=== PATIENT | female | born 1955 | race Caucasian/White ===

== ENCOUNTER 2020-02-09 15:40 | Outpatient (CLI) | payer SELFPAY ==
--- NOTE | 2020-02-13 13:52 | ONC FU_ITS ---
Dr. Lyons Patient Follow-Up Note Patient: Dasyi Zee Unit #: [id number]: 1955 Dicatated By: Daniel Lyons M.D.Date of Visit:Feb 09, 2020 Onc Med Follow-up/Prog Note Chief Complaint: Recurrent thrombosis. History of Present Illness: This is a 65 year old woman with recurrent episodes of lower extremity superficial thrombophlebitis and chronic venous stasis of the left leg. I had seen her initially in May 2006. She had been having recurrent episodes of superficial phlebitis, though she also reported a prior history of deep vein thrombosis involving both legs. 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 The phlebitis had been unresponsive to conservative measures, and I did had opted to keep her on chronic anticoagulation with warfarin. She reported having had deep vein thrombosis in both legs in the past, but it was at least 30 years ago. At that time she was treated with warfarin for about a year. She also has degenerative arthritis and fibromyalgia, and she has anxiety/depression. She is a nonsmoker. She is seen for a followup visit. She has been on disability as of last February. She says she is tired, but she is able to do light work. 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 She has good appetite. She has no fever, night sweats, or hot flashes. She has some allergy related sinus symptoms. She is needing to see a dentist for a bad tooth. She has no shortness of breath, cough, or chest pain. She has occasional acid reflux symptoms. She has no other GI or complaints. She has significant arthritis in her hands and feet, and she has ongoing problems with the lower extremity venous stasis. She has chronic anxiety. It is managed adequately with citalopram. Medications: Magnesium 1 Tablet Oral b.i.d., Multivitamins 1 Tablet Oral daily, Super B Complex 1 Tablet Oral daily, Vitamin C 1 Capsule Oral daily, Warfarin Sodium 7.5 Tablet Oral Allergies: NKA Review of Systems: Constitutional - She is generally feeling good. She takes care of her and their farm. Her appetite is good and her weight is up 16 pounds from last years visit. No fever, night sweats, or hot flashes. ECOG score is 1, ENMT - She has sinus congestion/drainage. No mouth sores. No sore throat or difficulty swallowing, Hematologic/Lymphatic - No abnormal bruising or bleeding, Respiratory - No shortness of breath. No cough. No pleuritic pain or hemoptysis, Cardiovascular - No angina pain. No palpitations, Gastrointestinal - No nausea or vomiting. She has occasional heartburn. No diarrhea or constipation. No blood in the stool or black stools, Genitourinary (F) - No dysuria or hematuria. No urinary frequency. No urgency or incontinence, Musculoskeletal - She has significant venous stasis pain in her legs. She also has joint pain in her hands and feet, Integumentary - No other skin complications, Neurologic - No headache or dizziness. No numbness or tingling. No other focal neurologic symptoms, Psychiatric - Her anxiety is adequately managed with citalopram. No depression. She is sleeping better with trazodone. Vital Signs: Her weight is 227 pounds. Blood pressure 146/83, pulse 73, respirations 16, temp 98.6 degrees, oxygen saturation 98%. Physical Examination: Constitutional - She looks pretty good generally, Eyes - Sclerae nonicteric. Conjunctivae clear, ENMT - She has a bad upper left molar. There are no other lesions noted in the oral cavity, Hematologic/Lymphatic - No cervical, clavicular, or axillary adenopathy, Respiratory - Lungs are clear with good air movement bilaterally, Cardiovascular - Heart rhythm is regular. There is no murmur, gallop, or rub noted, Abdomen - Mildly distended. Liver and spleen are not enlarged. There is no abdominal mass or ascites noted and there is no inguinal adenopathy, Extremities - There are venous stasis changes bilaterally, left much worse than right. There are no skin ulcerations. There is mild edema, Neurologic - No focal neurologic deficits noted. Impression: 1. Patiet with recurrent lower extremity venous thrombosis. 2. She has chronic venous stasis of the left leg which had gradually worsened despite anticoagulation with warfarin. Her other medical illnesses include: 3. She has fairly severe degenerative arthritis with poor mobility. 4. She has fibromyalgia. 5. She has chronic anxiety/depression and chronic insomnia. She has remained on chronic anticoagulation with warfarin, which she tolerates well. She has ongoing problems with the venous stasis, but she has had no evidence for any new thromboembolism. She has limited activity due to her degenerative arthritis and fibromyalgia. Her overall clinical status, though, appears stable. Plan: She continues anticoagulation with warfarin. She will be given a prescription for Augmentin for the dental infection, and she will be seeing a dentist as soon as she is able. I will just see her again in 1 year, or sooner as needed. Signed By: Daniel Lyons M.D. <<Signature on File>>
== END 2020-02-09 15:41 | disposition home or self-care (01) ==
PROVIDERS: PCP Family Medicine; Visit Provider Internal Medicine Medical Oncology
DX: Z09 Encounter for follow-up examination after completed treatment for conditions other than malignant neoplasm (principal); Z86.718 Personal history of other venous thrombosis and embolism; Z79.01 Long term (current) use of anticoagulants; K04.7 Periapical abscess without sinus; M19.90 Unspecified osteoarthritis, unspecified site; M79.7 Fibromyalgia; F41.8 Other specified anxiety disorders; F51.04 Psychophysiologic insomnia
CPT/HCPCS: G0463

== ENCOUNTER 2021-03-28 13:19 | Outpatient (CLI) | payer MEDICARE, SELFPAY ==
--- NOTE | 2021-04-01 17:02 | ONC FU_ITS ---
Dr. Lyons Patient Follow-Up Note Patient: Daysi Zee Unit #: [id number]: 1955 Dicatated By: Daniel Lyons M.D.Date of Visit:Mar 28, 2021 Onc Med Follow-up/Prog Note Chief Complaint: Recurrent thrombosis. History of Present Illness: This is a 66 year old woman with recurrent episodes of lower extremity superficial thrombophlebitis and chronic venous stasis of the left leg. I had seen her initially in May 2006. She had been having recurrent episodes of superficial phlebitis, though she also reported a prior history of deep vein thrombosis involving both legs. 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 The phlebitis had been unresponsive to conservative measures, and I did had opted to keep her on chronic anticoagulation with warfarin. She reported having had deep vein thrombosis in both legs in the past, but it was at least 30 years ago. At that time she was treated with warfarin for about a year. She also has degenerative arthritis and fibromyalgia, and she has anxiety/depression. She is a nonsmoker. She is seen for a followup visit. She complains that she stays tired. She also describes having brain fog. She has been having spells where she gets lightheaded and dizzy. These occur sporadically, maybe once every 2 to 3 weeks. With the spell she gets hot and she felt sick to her stomach. She also tends to get dizzy when she raises up and bed. She is able to do light work. ECOG score is 1. She has good appetite. She has not had fever or night sweats. She has some allergy related sinus symptoms and she has some cough with it. She does not complain of shortness of breath or chest pain. She has heartburn, which he manages adequately with Pepcid. Bowel and bladder function have been okay. She has some chronic fibromyalgia pain. She does not complain of headache or focal neurologic symptoms. She reports having tremor occasionally, and she does have some anxiety. Medications: CeleXA 1 Tablet (of 20 mg) Oral daily, D3 1 Tablet (of 5000 ) Oral daily, Furosemide 1 Tablet (of 20 mg) Oral daily, Magnesium 1 Tablet Oral daily, Super B Complex 1 Tablet Oral daily, Warfarin Sodium 7.5 Tablet Oral Allergies: NKA Vital Signs: Performed on Mar 28, 2021 15:46 Height - 62.00 in Weight - 232.4 lbs (HIGH) BSA - 2.04 sq.m BMI - 42.51 (HIGH) Temperature - 98.5 F Pulse - 80 /min Respiration - 18 /min BP - 164/85 mm(hg) (HIGH) O2 Sat - 97 % Pain - 0 Fatigue - 5 Physical Examination: Constitutional - She looks pretty good generally, Eyes - Sclerae nonicteric. Conjunctivae clear, ENMT - No lesions noted in the oral cavity, Hematologic/Lymphatic - No cervical, clavicular, or axillary adenopathy, Respiratory - Lungs are clear with good air movement bilaterally, Cardiovascular - Heart rhythm is regular. There is no murmur, gallop, or rub noted, Abdomen - Mildly distended. Liver and spleen are not enlarged. There is no abdominal mass or ascites noted and there is no inguinal adenopathy, Extremities - There are venous stasis changes bilaterally and there are multiple varicosities, left much worse than right. There are no skin ulcerations. There is no edema, Neurologic - No focal neurologic deficits noted. Lab/Imaging: Test performed on Jan 25, 2021 09:18 Coumadin, Current Dose 7.5mg daily Coumadin, New Dose same PT 16.7 sec INR 1.6 Problem List: 1. Patiet with recurrent lower extremity venous thrombosis. 2. She has chronic venous stasis of the left leg which had gradually worsened despite anticoagulation with warfarin. 3. She has fairly severe degenerative arthritis with poor mobility. 4. She has fibromyalgia. 5. She has chronic anxiety/depression and chronic insomnia. Problems Addressed with this Encounter and Plan: 1. Patiet with recurrent lower extremity venous thrombosis. She has associated chronic venous stasis of the left leg which had gradually worsened despite anticoagulation with warfarin. During follow-up she has continued to have issues with the venous stasis, but she has had no evidence of any new thrombosis. She will continue anticoagulation with warfarin. 2. She has had episodes of dizziness, which sounds like vertigo. She also has symptoms which are suggestive of some component of positional vertigo. I suggested that she try meclizine. Signed By: Daniel Lyons M.D. <<Signature on File>>
== END 2021-03-28 13:20 | disposition home or self-care (01) ==
LOC: ONCMED 13:25
PROVIDERS: PCP Nurse Practitioner Family; Visit Provider Internal Medicine Medical Oncology
DX: I80.03 Phlebitis and thrombophlebitis of superficial vessels of lower extremities, bilateral (principal); I87.8 Other specified disorders of veins; R42 Dizziness and giddiness; M79.7 Fibromyalgia; F41.9 Anxiety disorder, unspecified; F32.A Depression, unspecified; M19.90 Unspecified osteoarthritis, unspecified site; Z79.01 Long term (current) use of anticoagulants; Z79.899 Other long term (current) drug therapy
CPT/HCPCS: G0463

== ENCOUNTER → 2023-07-14 23:59 | Oncology outpatient (recurring) (ONCR) | payer MEDICARE, SELFPAY | END | disposition home or self-care (01) | LOC: ONCMED 07-12 13:48 | PROVIDERS: PCP Nurse Practitioner Family; Visit Provider Nurse Practitioner Family | DX: I80.02 Phlebitis and thrombophlebitis of superficial vessels of left lower extremity (principal); I87.2 Venous insufficiency (chronic) (peripheral); Z79.01 Long term (current) use of anticoagulants | CPT/HCPCS: 99213 ==

== ENCOUNTER 2023-09-16 14:00 | Oncology outpatient (recurring) (ONCR) | payer MEDICARE, SELFPAY | END 2023-10-13 23:59 | disposition home or self-care (01) | PROVIDERS: PCP Nurse Practitioner Family; Visit Provider Nurse Practitioner Family | DX: I80.02 Phlebitis and thrombophlebitis of superficial vessels of left lower extremity (principal); I87.2 Venous insufficiency (chronic) (peripheral); Z79.01 Long term (current) use of anticoagulants | CPT/HCPCS: 99213 ==

== ENCOUNTER 2024-09-16 14:24 | Oncology outpatient (recurring) (ONCR) | payer MEDICARE, SELFPAY | END 2024-10-12 23:59 | disposition home or self-care (01) | PROVIDERS: PCP Nurse Practitioner Family; Visit Provider Internal Medicine | DX: I80.02 Phlebitis and thrombophlebitis of superficial vessels of left lower extremity (principal); I87.2 Venous insufficiency (chronic) (peripheral); R03.0 Elevated blood-pressure reading, without diagnosis of hypertension; R01.1 Cardiac murmur, unspecified; L98.9 Disorder of the skin and subcutaneous tissue, unspecified; Z79.01 Long term (current) use of anticoagulants | CPT/HCPCS: 99214 ==

== ENCOUNTER 2024-10-28 09:15 | Oncology outpatient (recurring) (ONCR) | payer MEDICARE, SELFPAY ==
[2024-10-14 12:16] LABS: Hematocrit 40.5 % (36-47); Hemoglobin 13.50 g/dL (11.27-16.99); Mean Corpuscular HGB Conc 33.3 g/dL (30-55); Mean Corpuscular Hemoglobin 29.6 pg (27-33); Mean Corpuscular Volume 88.8 fl (85-98); Nucleated Red Blood Cells % 0 %; Platelet Count 237 10^3/cmm (157-399); Red Blood Count 4.56 10^6/uL (3.85-5.65); White Blood Count 7.53 10^3/uL (3.29-11.43)
[2024-10-14 12:32] LABS: INR 2.85 (0.8-1.2); Prothrombin Time 31.50 SECONDS (12.1-14.9)
[2024-10-14 12:40] LABS: Alanine Aminotransferase 13 U/L (0-33); Albumin Level 4.1 g/dL (3.5-5.2); Alkaline Phosphatase 83 U/L (35-105); Anion Gap 18.2 (5-19); Aspartate Amino Transferase 20 U/L (0-32); Blood Urea Nitrogen 10 mg/dL (8-23); Calcium 9.3 mg/dL (8.5-10.5); Carbon Dioxide 22 mmol/L (22-29); Chloride 105 mmol/L (98-107); Globulin 3.1 g/dL (1.3-4.6); Glucose 74 mg/dL (65-115); Osmolality Calculated 290 mOsm/kg (285-295); Potassium 4.2 mmol/L (3.5-5.1); Sodium 141 mmol/L (136-145); Total Protein 7.2 g/dL (6.6-8.7)
--- NOTE | 2024-10-28 09:15 | USCV_ITS ---
Daysi Zee Age: 69 Gender: F : 1955 Exam Date: 10/28/2024 09:38 Ordering Phys: Christiana Junior APRN Technologist: GEORGE [place] [facility] [place]: Murmur BP: 157 / 89 HR: 59 Rhythm: Sinus Technical Quality: Adequate MEASUREMENTS (Male / Female) Normal Values 2D ECHO LV Diastolic Diameter PLAX 5.5 cm 4.2 - 5.9 / 3.9 - 5.3 cm IVS Diastolic Thickness 1.1 cm 0.6 - 1.0 / 0.6 - 0.9 cm IVS Systolic Thickness 1.4 cm LVPW Diastolic Thickness 1.4 cm 0.6 - 1.0 / 0.6 - 0.9 cm LVPW Systolic Thickness 1.6 cm LVOT Diameter 2.0 cm LV Ejection Fraction 2D Teich 68.0 % LV Ejection Fraction MOD 4C 59.8 % LV Ejection Fraction MOD 2C 60.3 % LV Ejection Fraction 2C AL 61.8 % LA Diameter 3.8 cm RA Systolic Volume 4C AL 34.5 ml RA Systolic Volume 4C MOD 31.5 ml LA Sys Volume AL 71.8 cm cubed LA Sys Volume Index AL 31.4 cm cubed/m squared Aorta at Sinotubular Diameter 2.2 cm M-MODE LA Ao Ratio MM 1.8 AV Cusp Separation MM 0.9 cm DOPPLER AV Peak Velocity 309.7 cm/s LVOT Peak Velocity 112.0 cm/s AV Area Cont Eq vti 1.3 cm squared AV Area Cont Eq pk 1.2 cm squared MV Peak Velocity 104.0 cm/s MV Area PHT 4.4 cm squared Mitral E to A Ratio 1.1 TR Peak Velocity 101.0 cm/s TR Peak Gradient 4.1 mmHg TV Peak E Velocity 75.0 cm/s PV Peak Velocity 117.0 cm/s FINDINGS Left Ventricle Normal left ventricular size, systolic function and wall thickness, with no regional wall motion abnormalities. Left ventricular ejection fraction is estimated at 60 %. Grade I/IV diastolic dysfunction (abnormal relaxation filling pattern), normal to mildly elevated filling pressures. Right Ventricle The right ventricle is normal in size and function. Right Atrium The right atrium is normal in size. Left Atrium Mildly increased left atrial size. Mitral Valve Structurally normal mitral valve without significant stenosis or prolapse. There is no mitral regurgitation. Aortic Valve Moderate aortic valve calcification. Moderate aortic valve stenosis, mean gradient 21.1 mmHg, MEI 1.3 cm squared. Trace aortic valve regurgitation. Tricuspid Valve Structurally normal tricuspid valve without significant stenosis or regurgitation. Pulmonary artery systolic pressure is normal. Pulmonic Valve Structurally normal pulmonic valve without significant stenosis. There is no pulmonic regurgitation. Pericardium Normal pericardium without effusion. Aorta Normal ascending aorta dimension. IVC The inferior vena cava appears normal. CONCLUSIONS Normal left ventricular size, systolic function and wall thickness, with no regional wall motion abnormalities. Left ventricular ejection fraction is estimated at 60 %. Grade I/IV diastolic dysfunction (abnormal relaxation filling pattern), normal to mildly elevated filling pressures. Moderate aortic valve calcification. Moderate aortic valve stenosis, mean gradient 21.1 mmHg, MEI 1.3 cm squared. Trace aortic valve regurgitation. There is no pericardial effusion. Right atrial pressure is around 5 mm of mercury. Armin Cobb MD (Electronically Signed) Final Date: 31 October 2024 14:24 S
== END 2024-11-12 23:59 | disposition home or self-care (01) ==
LOC: RAD 10-29 → ONCMED 10-29 09:05
PROVIDERS: Nurse Practitioner Family; PCP Nurse Practitioner Family; Visit Provider Internal Medicine
DX: R01.1 Cardiac murmur, unspecified; I87.2 Venous insufficiency (chronic) (peripheral); R93.1 Abnormal findings on diagnostic imaging of heart and coronary circulation; I51.7 Cardiomegaly; I35.8 Other nonrheumatic aortic valve disorders; I35.0 Nonrheumatic aortic (valve) stenosis; Z53.9 Procedure and treatment not carried out, unspecified reason
CPT/HCPCS: 36415; 80053; 85025; 85610; 93306

== ENCOUNTER → 2024-11-09 13:52 | Outpatient (BNVA) | payer MEDICARE, SELFPAY | PROVIDERS: PCP Nurse Practitioner Family; Visit Provider Nurse Practitioner Family | DX: L81.4 Other melanin hyperpigmentation (principal); D18.01 Hemangioma of skin and subcutaneous tissue; L57.8 Other skin changes due to chronic exposure to nonionizing radiation; L57.3 Poikiloderma of Civatte; X32.XXXA Exposure to sunlight, initial encounter; L57.0 Actinic keratosis | CPT/HCPCS: 17000; 99203 ==

== ENCOUNTER 2024-11-18 12:02 | Oncology outpatient (recurring) (ONCR) | payer MEDICARE, SELFPAY ==
[2024-11-18 12:24] LABS: Hematocrit 40.2 % (36-47); Hemoglobin 13.90 g/dL (11.27-16.99); Mean Corpuscular HGB Conc 34.6 g/dL (30-55); Mean Corpuscular Hemoglobin 30.5 pg (27-33); Mean Corpuscular Volume 88.2 fl (85-98); Nucleated Red Blood Cells % 0 %; Platelet Count 228 10^3/cmm (157-399); Red Blood Count 4.56 10^6/uL (3.85-5.65); White Blood Count 7.94 10^3/uL (3.29-11.43)
[2024-11-18 12:41] LABS: INR 2.30 (0.8-1.2); Prothrombin Time 26.60 SECONDS (12.1-14.9)
[2024-11-18 12:43] LABS: Alanine Aminotransferase 16 U/L (0-33); Albumin Level 4.1 g/dL (3.5-5.2); Alkaline Phosphatase 74 U/L (35-105); Anion Gap 17.2 (5-19); Aspartate Amino Transferase 30 U/L (0-32); Blood Urea Nitrogen 19 mg/dL (8-23); Calcium 9.1 mg/dL (8.5-10.5); Carbon Dioxide 22 mmol/L (22-29); Chloride 108 mmol/L (98-107); Globulin 3.2 g/dL (1.3-4.6); Glucose 105 mg/dL (65-115); Osmolality Calculated 299 mOsm/kg (285-295); Potassium 4.2 mmol/L (3.5-5.1); Sodium 143 mmol/L (136-145); Total Protein 7.3 g/dL (6.6-8.7)
== END 2024-12-13 23:59 | disposition home or self-care (01) ==
LOC: ONCMED 12:03
PROVIDERS: PCP Nurse Practitioner Family; Visit Provider Internal Medicine
DX: I80.00 Phlebitis and thrombophlebitis of superficial vessels of unspecified lower extremity (principal); Z79.01 Long term (current) use of anticoagulants
CPT/HCPCS: 36415; 80053; 85025; 85610

== ENCOUNTER 2024-12-16 12:31 | Oncology outpatient (recurring) (ONCR) | payer MEDICARE, SELFPAY ==
[2024-12-16 13:04] LABS: Hematocrit 42.4 % (36-47); Hemoglobin 14.20 g/dL (11.27-16.99); Mean Corpuscular HGB Conc 33.5 g/dL (30-55); Mean Corpuscular Hemoglobin 29.6 pg (27-33); Mean Corpuscular Volume 88.5 fl (85-98); Nucleated Red Blood Cells % 0 %; Platelet Count 231 10^3/cmm (157-399); Red Blood Count 4.79 10^6/uL (3.85-5.65); White Blood Count 8.48 10^3/uL (3.29-11.43)
[2024-12-16 13:29] LABS: INR 1.50 (0.8-1.2); Prothrombin Time 19.00 SECONDS (12.1-14.9)
[2024-12-16 13:34] LABS: Alanine Aminotransferase 17 U/L (0-33); Albumin Level 4.2 g/dL (3.5-5.2); Alkaline Phosphatase 82 U/L (35-105); Anion Gap 16.5 (5-19); Aspartate Amino Transferase 21 U/L (0-32); Blood Urea Nitrogen 22 mg/dL (8-23); Calcium 9.6 mg/dL (8.5-10.5); Carbon Dioxide 23 mmol/L (22-29); Chloride 105 mmol/L (98-107); Globulin 3.3 g/dL (1.3-4.6); Glucose 102 mg/dL (65-115); Osmolality Calculated 294 mOsm/kg (285-295); Potassium 4.5 mmol/L (3.5-5.1); Sodium 140 mmol/L (136-145); Total Protein 7.5 g/dL (6.6-8.7)
== END 2025-01-12 23:59 | disposition home or self-care (01) ==
LOC: ONCMED 12:32
PROVIDERS: PCP Nurse Practitioner Family; Visit Provider Internal Medicine
DX: I80.00 Phlebitis and thrombophlebitis of superficial vessels of unspecified lower extremity (principal); Z79.01 Long term (current) use of anticoagulants
CPT/HCPCS: 36415; 80053; 85025; 85610

== ENCOUNTER → 2024-12-21 08:35 | Outpatient (BNVA) | payer MEDICARE, SELFPAY | PROVIDERS: PCP Nurse Practitioner Family; Visit Provider Nurse Practitioner Family | DX: L57.0 Actinic keratosis (principal); X32.XXXA Exposure to sunlight, initial encounter; L57.8 Other skin changes due to chronic exposure to nonionizing radiation; L57.3 Poikiloderma of Civatte; L81.4 Other melanin hyperpigmentation | CPT/HCPCS: 99213 ==

== ENCOUNTER → 2024-12-30 14:20 | Outpatient (BNVA) | payer MEDICARE, SELFPAY | PROVIDERS: PCP Nurse Practitioner Family; Referring Provider Nurse Practitioner Family; Visit Provider Internal Medicine | DX: R07.9 Chest pain, unspecified (principal) | CPT/HCPCS: 93005; 99204 ==

== ENCOUNTER 2025-01-13 11:54 | Oncology outpatient (recurring) (ONCR) | payer MEDICARE, SELFPAY ==
[2025-01-13 12:26] LABS: Hematocrit 40.8 % (36-47); Hemoglobin 13.90 g/dL (11.27-16.99); Mean Corpuscular HGB Conc 34.1 g/dL (30-55); Mean Corpuscular Hemoglobin 30.5 pg (27-33); Mean Corpuscular Volume 89.5 fl (85-98); Nucleated Red Blood Cells % 0 %; Platelet Count 201 10^3/cmm (157-399); Red Blood Count 4.56 10^6/uL (3.85-5.65); White Blood Count 7.34 10^3/uL (3.29-11.43)
[2025-01-13 12:50] LABS: Alanine Aminotransferase 18 U/L (0-33); Albumin Level 4.2 g/dL (3.5-5.2); Alkaline Phosphatase 80 U/L (35-105); Anion Gap 13.0 (5-19); Aspartate Amino Transferase 24 U/L (0-32); Blood Urea Nitrogen 15 mg/dL (8-23); Calcium 9.3 mg/dL (8.5-10.5); Carbon Dioxide 26 mmol/L (22-29); Chloride 104 mmol/L (98-107); Globulin 3.1 g/dL (1.3-4.6); Glucose 92 mg/dL (65-115); Osmolality Calculated 288 mOsm/kg (285-295); Potassium 4.0 mmol/L (3.5-5.1); Sodium 139 mmol/L (136-145); Total Protein 7.3 g/dL (6.6-8.7)
[2025-01-13 13:01] LABS: INR 1.98 (0.8-1.2); Prothrombin Time 23.70 SECONDS (12.1-14.9)
== END 2025-02-12 23:59 | disposition home or self-care (01) ==
PROVIDERS: PCP Nurse Practitioner Family; Visit Provider Internal Medicine
DX: I80.00 Phlebitis and thrombophlebitis of superficial vessels of unspecified lower extremity (principal)
CPT/HCPCS: 36415; 80053; 85025; 85610

== ENCOUNTER 2025-02-17 12:20 | Oncology outpatient (recurring) (ONCR) | payer MEDICARE, SELFPAY ==
[2025-02-17 13:01] LABS: Hematocrit 41.3 % (36-47); Hemoglobin 13.80 g/dL (11.27-16.99); Mean Corpuscular HGB Conc 33.4 g/dL (30-55); Mean Corpuscular Hemoglobin 29.8 pg (27-33); Mean Corpuscular Volume 89.2 fl (85-98); Nucleated Red Blood Cells % 0 %; Platelet Count 197 10^3/cmm (157-399); Red Blood Count 4.63 10^6/uL (3.85-5.65); White Blood Count 8.97 10^3/uL (3.29-11.43)
[2025-02-17 13:13] LABS: INR 1.92 (0.8-1.2); Prothrombin Time 23.20 SECONDS (12.1-14.9)
== END 2025-03-14 23:59 | disposition home or self-care (01) ==
LOC: ONCMED 12:20
PROVIDERS: Visit Provider Internal Medicine
DX: I80.00 Phlebitis and thrombophlebitis of superficial vessels of unspecified lower extremity (principal); Z79.01 Long term (current) use of anticoagulants
CPT/HCPCS: 36415; 85025; 85610

== ENCOUNTER 2025-03-23 12:51 | Oncology outpatient (recurring) (ONCR) | payer MEDICARE, SELFPAY ==
[2025-03-23 14:02] LABS: Hematocrit 40.9 % (36-47); Hemoglobin 13.60 g/dL (11.27-16.99); Mean Corpuscular HGB Conc 33.3 g/dL (30-55); Mean Corpuscular Hemoglobin 29.6 pg (27-33); Mean Corpuscular Volume 89.1 fl (85-98); Nucleated Red Blood Cells % 0 %; Platelet Count 231 10^3/cmm (157-399); Red Blood Count 4.59 10^6/uL (3.85-5.65); White Blood Count 9.13 10^3/uL (3.29-11.43)
[2025-03-23 14:22] LABS: INR 1.57 (0.8-1.2); Prothrombin Time 19.70 SECONDS (12.1-14.9)
[2025-03-23 14:23] LABS: Alanine Aminotransferase 17 U/L (0-33); Albumin Level 4.1 g/dL (3.5-5.2); Alkaline Phosphatase 79 U/L (35-105); Anion Gap 14.3 (5-19); Aspartate Amino Transferase 23 U/L (0-32); Blood Urea Nitrogen 24 mg/dL (8-23); Calcium 9.4 mg/dL (8.5-10.5); Carbon Dioxide 25 mmol/L (22-29); Chloride 101 mmol/L (98-107); Globulin 3.0 g/dL (1.3-4.6); Glucose 88 mg/dL (65-115); Osmolality Calculated 285 mOsm/kg (285-295); Potassium 4.3 mmol/L (3.5-5.1); Sodium 136 mmol/L (136-145); Total Protein 7.1 g/dL (6.6-8.7)
== END 2025-04-14 23:59 | disposition home or self-care (01) ==
LOC: ONCMED 12:53
PROVIDERS: Visit Provider Internal Medicine
DX: I80.00 Phlebitis and thrombophlebitis of superficial vessels of unspecified lower extremity (principal); Z79.01 Long term (current) use of anticoagulants
CPT/HCPCS: 36415; 80053; 85025; 85610